=== PATIENT | female | born 1975 | race Hispanic/Latino ===

== ENCOUNTER 2017-11-03 11:03 | Outpatient (CLI) | payer BC | END 2017-11-03 11:04 | disposition home or self-care (01) | LOC: BICMAMMO 11:03 | PROVIDERS: ATTEND Obstetrics & Gynecology | DX: Z12.31 Encounter for screening mammogram for malignant neoplasm of breast (principal) | CPT/HCPCS: 77063; 77067 ==

== ENCOUNTER 2018-07-03 08:04 | Outpatient (CLI) | payer BC ==
[2018-07-03] MEDS ORDERED: Iopamidol 370 76% 100 ML VIAL ONE (11:07)
--- NOTE | 2018-07-03 11:42 | CT ---
CT ABDOMEN AND PELVIS WITH IV AND ORAL CONTRAST: History: Midabdominal pain after eating. Bloating and cramping. FINDINGS: Lung bases are clear. The liver, spleen, kidneys, adrenal glands, and pancreas have a normal CT appea vincent. Physiologic amount of free fluid within the cul-de-sac. Follicles arise from each ovary. There is subtle circumferential wall thickening of the gastric antrum with somewhat low density. Large amount of stool is present throughout the colon and distends the rectum. At the level of the ma jora labia, an oval low density mass is 2.7 cm greatest length on the axial images. IMPRESSION: 1. Constipation. 2. Edematous appearance of the gastric antrum. Please correlate with findings from recent EDG. 3. Probable cyst of the left labium majora. POS: SUSANNE
== END 2018-07-03 08:05 | disposition home or self-care (01) ==
LOC: CT 08:04
PROVIDERS: ATTEND Internal Medicine
DX: R10.9 Unspecified abdominal pain (principal); R11.0 Nausea; M54.9 Dorsalgia, unspecified; K59.00 Constipation, unspecified; K31.89 Other diseases of stomach and duodenum
CPT/HCPCS: 74177

== ENCOUNTER 2018-11-05 14:29 | Outpatient (CLI) | payer BC | END 2018-11-05 14:30 | disposition home or self-care (01) | LOC: BICMAMMO 14:29 | PROVIDERS: ATTEND Obstetrics & Gynecology | DX: Z12.31 Encounter for screening mammogram for malignant neoplasm of breast (principal) | CPT/HCPCS: 77063; 77067 ==